=== PATIENT | female | born 1980 ===

== ENCOUNTER → 2018-12-27 21:19 | Outpatient (ROUT) | payer OTHER, SELFPAY ==
[2018-12-27 21:57] LABS: Add Manual Diff / Slide Review NO; Basophils Absolute Auto 100 /uL (0-100); Basophils Percent Auto 1.3 % (0-2); Eosinophils Absolute Auto 100 /uL (0-450); Hematocrit 42.1 % (36-46); Lymphocytes Absolute Auto 2200 /uL (1100-4500); Mean Corpuscular HGB Conc 33.3 % (30-36); Mean Corpuscular Hemoglobin 32.3 PG (26-34); Mean Corpuscular Volume 96.9 fL (80-100); Monocytes Absolute Auto 500 /uL (0-900); Monocytes Percent Auto 7.1 % (3-14); Neutrophils Absolute Auto 4000 /uL (1500-7000); Neutrophils Percent Auto 57.6 % (50-75); Platelet Count 315 X10^3/uL (150-400); Red Blood Cell Count 4.34 X10^6/uL (4.0-5.2); White Blood Cell Count 6.9 X10^3/uL (4.5-11.0)
[2018-12-27 22:14] LABS: Alanine Aminotransferase 28 IU/L (9-52); Albumin 4.4 g/dL (3.5-5.0); Albumin Globulin Ratio 1.5 (1.0-2.8); Alkaline Phosphatase 52 U/L (38-126); Aspartate Aminotransferase 29 IU/L (14-36); BUN Creatinine Ratio 24.3 (6-22); Bilirubin Total 0.6 mg/dL (0.2-1.3); Blood Urea Nitrogen 17 mg/dL (7-17); Calcium 9.9 mg/dL (8.4-10.2); Carbon Dioxide 31 mmol/L (22-32); Chloride 101 mmol/L (98-107); Cholesterol 154 mg/dL (140-199); Estimated Glomerular Filt Rate > 60.0 mL/min (>60); Globulin 2.9 g/dL (1.7-4.1); Glucose 101 mg/dL (70-100); HDL Cholesterol 85 mg/dL (40-60); LDL Cholesterol Calculated 58 mg/dL (<100); Potassium 5.2 mmol/L (3.4-5.1); Sodium 140 mmol/L (137-145); Total Protein 7.3 g/dL (6.3-8.2); Triglycerides 54 mg/dL (35-150)
[2018-12-27 22:19] LABS: Vitamin D 25 Hydroxy (D3) 32.4 ng/mL (30.0-100.0)
[2018-12-27 22:43] LABS: Ferritin 20.3 ng/mL (6.27-137)
[2018-12-27 23:18] LABS: HEMOLYSIS < 15 (0-50); Iron 198 ug/dL (37-170)
[2018-12-27 23:30] LABS: Percent Iron Saturation 40 % (15-50); Total Iron Binding Capacity 489 ug/dL (265-497); Transferrin 387 mg/dL (206-381)
[2018-12-27 23:38] LABS: Free T4, Direct Thyroxine 0.74 ng/dL (0.78-2.19)
[2018-12-28 00:16] LABS: HEMOLYSIS < 15 (0-50); Vitamin B12 317 pg/mL (239-931)
[2019-01-02 11:55] LABS: Triiodothyronine T3 Total 99 ng/dL (76-181)
== END ==
PROVIDERS: Visit Provider Family Medicine
DX: R53.83 Other fatigue (principal); E53.8 Deficiency of other specified B group vitamins; R79.0 Abnormal level of blood mineral; R79.89 Other specified abnormal findings of blood chemistry
CPT/HCPCS: 36415; 80053; 80061; 82306; 82607; 82728; 83540; 83550; 84439; 84443; 84480; 85025